=== PATIENT | male | born 1995 | race Caucasian/White ===

== ENCOUNTER 2022-07-25 08:03 | Emergency (ER) | payer BC, SELFPAY ==
[2022-07-25 08:20] VITALS: BP 127/81; PULSE 59; RESP 16; TEMP 36.2; O2SAT 100
--- NOTE | 2022-07-25 08:20 | ED.URI ---
HPI - URI/Sore Throat General Chief Complaint: Upper Respiratory Infection Stated Complaint: sorethroat,cough Time Seen by Provider: 07/25/22 08:20 Source: patient, RN notes reviewed and old records reviewed Mode of arrival: ambulatory Limitations: no limitations History of Present Illness HPI Narrative: 27 year old male who presents to [facility] with complaints of sore throat since Sunday with some cough and fevers with chills and sweats. Patient reports that he did have fevers on Sunday with chills sweats and felt achy but achiness has resolved. Patient reports that throat is very sore especially when swallowing. He has been taking cold and flu medications OTC for his symptoms. He denies any ear pain or sinus congestion or any shortness of breath.Patient has had COVID vaccinations but no flu shot. MD elicited complaint: cough and sore throat Onset (ago): day(s) (3-4 days) Pain scale (0-10): 7 Exacerbating factors: swallowing Treatments prior to arrival: other (cold and flu medication OTC) Related Data Allergies Allergy/AdvReac Type Severity Reaction Status Date / Time metoclopramide Allergy Intermediate ALTERED Verified 07/25/22 08:16 MENTAL STATUS prochlorperazine Allergy Intermediate altered Verified 07/25/22 08:16 mental status Review of Systems Review of Systems: CONSTITUTIONAL: Reports malaise, chills, sweats, or fever. EYES: Denies visual changes, redness, or discharge. ENT: Reports no rhinorrhea, congestion, sinus pain, otalgia positive for sore throat. CARDIOVASCULAR: Denies chest pain, palpitations, or edema. RESPIRATORY: Reports cough.? Denies dyspnea. GASTROINTESTINAL: Denies abdominal pain, nausea, vomiting, diarrhea SKIN: Denies rash or itching. MUSCULOSKELETAL: Denies myalgia at present time NEUROLOGIC: Denies headache. All systems reviewed & are unremarkable except as noted in HPI and below PMFSH Surgical History Surgical History (Updated 07/25/22 @ 08:35 by Maryam Hein NP) H/O elbow surgery right History of shoulder surgery right Family History Family History Mother Patient's mother is in good health Father Patient's father is in good health Heart disease Sibling Patient's brother is in good health Grandparent Heart disease Social History Social History Smoking status: Never smoker Second hand tobacco smoke exposure: No Alcohol intake: current Substance use: unknown Comments At time of signature, agree with nursing past medical, surgical, social and family history. There is no relevant family history pertinent to the presenting complaint Exam Narrative: GENERAL: Well-appearing, well-nourished, and in no acute distress. HEAD: Normocephalic EYES: PERRLA, conjunctivae clear ENT: Nares clear, turbinates edematous and erythematous, clear discharge. Mucous membranes moist. TM pearly owens with dull light reflex bilaterally; no tragal tenderness. Oropharynx erythematous without lesions. Tonsils red and enlarged and without exudate, no drooling, no hoarseness, no trismus, uvula midline. NECK: Supple. No lymphadenopathy CHEST: Clear to auscultation, breath sounds equal. No wheezing, rhonchi, rales, or stridor. No respiratory distress, speaks in full sentences.occasional cough, SAO2 100% on room air HEART: Regular rate and rhythm. No murmur heard. SKIN: Warm, dry, no rash. NEURO: Alert and oriented x3. PSYCH: Normal mood and affect Course Course Emergency Course: Patient is aware of diagnosis, understands and agrees to treatment plan.? Anticipatory guidance given.? Patient agrees to follow-up as directed and is aware of reasons to seek care at the emergency department. Portions of this record may have been created with voice recognition software Level of Care: Express Care Visit Vital Signs Vital signs
== END 2022-07-25 08:41 | disposition home or self-care (01) ==
PROVIDERS: Emergency Provider Registered Nurse; PCP Internal Medicine
DX: J02.0 Streptococcal pharyngitis (principal)
CPT/HCPCS: 87880; 99213; G0463